=== PATIENT | male | born 1975 | race Caucasian/White ===

== ENCOUNTER 2021-05-13 03:08 | Emergency (ER) | payer MEDICARE, SELFPAY ==
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
[2021-05-13 03:17] VITALS: BP 134/80; PULSE 106; RESP 18; TEMP 36.6; O2SAT 92; BMI 27.8
--- NOTE | 2021-05-13 03:40 | PC.NURSE ---
pt taken to ct. when pt is laying supine sat drop to 89% when hob elevated sat improved to 92%. pt placed on 2l nc. small blade removed from pt chest after ct by dr melara.
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
== END 2021-05-13 04:43 | disposition home or self-care (01) ==
PROVIDERS: Emergency Provider Internal Medicine; PCP Family Medicine
DX: Z04.1 Encounter for examination and observation following transport accident (principal); S20.30 Unspecified superficial injuries of front wall of thorax; W26.0XXA Contact with knife, initial encounter; Y93.89 Activity, other specified; Y92.810 Car as the place of occurrence of the external cause; Y99.9 Unspecified external cause status
CPT/HCPCS: 12001; 71250; 99283; 99284